=== PATIENT | male | born 1945 | race Caucasian/White ===

== ENCOUNTER 2017-03-31 15:40 | Emergency (ER) | payer MEDICARE, OTHER ==
[~2017-03-31] VITALS: Ht 177.8 cm; Wt 102.1 kg
[~2017-03-31 15:40] MED LIST: ALLOPURINOL100 MG PO; ASPIRIN 81MG TA81 MG PO; CHEWABLE ASPIRI81 MG PO; FLEXERIL10 M1 PO; HYDROCHLOROTHIA1 TA2 PO; HYDROCODONE1 TABLET PO; LIPITOR80 MG PO; LISINOPRIL/HCTZ1 TA3 PO; LOPRESSOR 50 MG50 MG PO; METOPROLOL TAR100 MG PO; MULTI VITAMINS1 TA1 PO; NAPROSYN 500MG500 MG PO; OMEPRAZOLE20 MG PO; PERCOCET 5/3251 EACH PO; PREDNISONE 20MG20 MG PO; TAMSULOSIN HCL0.4 MG PO; WELCHOL625 MG PO
--- NOTE | 2017-03-31 15:47 | Emergency Room Report ---
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 Clinical Suspician of Infection? Mental Status: Sepsis Risk: Have you (or family members/close friends) recently traveled outside the [place]? If Yes, where/when: Have you had exposure to infectious disease within the past month? TB? Other? Specify: Source patient, RN notes reviewed, family Exam Limitations no limitations Comment Pt just left the hospital yesterday after being treated for a Staph UTI and staph in the bloodstream and just got his PICC line removed yesterday. Did well yesterday when he got home but this morning got really SOA going to the Bathroom and has noticed that he is retaining fluid. 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 He is not on a diuretic at home and no oxygen, inhalers or nebs and he does not smoke. Cardiac Chest Pain Chest pain indicative of cardiac Yes ALLERGIES Coded Allergies: No Known Allergies (03/20/17) Home Medications Reported Medications Metoprolol Tartrate (Lopressor) 75 MG PO BID #90 TAB Atorvastatin Calcium (Atorvastatin) 80 MG PO QHS Allopurinol 100 MG PO DAILY ASPIRIN (Aspirin) 81 MG PO DAILY Omeprazole (Omeprazole 20MG) 20 MG PO DAILY #30 TAMSULOSIN HCL (Tamsulosin HCl) 0.4 MG PO DAILY #30 History Medical History General CAD? Yes Angina: Yes ID: Yes Hypertension? Yes Hyperlipidemia? Yes CHF? No DVT? No PE? No COPD? No Asthma? No Anemia? No GERD? Yes Gastric ulcers? No GI Bleed? No Hernia? No Thyroid Problems? No Hypothyroidism? No CVA? No Seizures? No Diabetes? No Renal Insuffiency? No End Stage Renal Disease? No UTI? No Stones? No BPH? Yes GB Disease: No Nephritic Syndrome? No Asplenia? No Hepatitis? No Sickle Cell Disease? No Arthritis? Yes Migraines? No Cataracts? No Glaucoma? No MRSA? No HIV? No TB? No Anxiety? No Depression? Yes Cancer? No More? No Immunization Hx DT/Tetanus 1-4 Years Ago Flu 2015-16FSN Pneumonia Received In Past Surgical Hx Previous Surgery?Y APPENDECTOMY Tonsils KNEE SX 2014 CABG X 3 Family History Family Hx Diabetes No CAD Yes Hypertension No Hyperlipidemia No Cancer Yes TB No Social History Smoking Hx Packs/day < 1 Pack Alcohol Alcohol: No Review of Systems All Other Systems Reviewed and Negative Constitutional see HPI Respiratory see HPI Psychiatric/Neurological see HPI Comment pedal and pretibial edema Physical Exam Vital Signs Vital Signs Date Time Temp Pulse Resp B/P Pulse O2 O2 Flow FiO2 Ox Delivery Rate 03/31 1723 98.0 90 24 132/79 90 2 03/31 1543 98.1 90 24 186/110 88 General Appearance no apparent distress, obese Respiratory Status Yes: respiratory distress (but is mildly SOA). Lung Sounds bilateral: rales. 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 No Results/Orders Laboratory Tests 03/31/17 1659: ABG pH 7.40, ABG pCO2 (Temp Corrct 31.3 L, ABG pO2 (Temp Correct 83.1, ABG HCO3 19.1 L, ABG Total CO2 20.0 L, ABG O2 Sat (Calculated) 95.1, ABG Base Excess - 5.7 L, William Test Y, Blood Gas Comments R/R 03/31/17 1633: Urine Color YELLOW, Urine Appearance CLEAR, Urine pH 5.5, Ur Specific [place] 1.020, Urine Protein 2+ H, Urine Ketones NEGATIVE, Urine Blood 3+ H, Urine Nitrate NEGATIVE, Urine Bilirubin NEGATIVE, Urine Urobilinogen 0.2, Ur Leukocyte Esterase TRACE H, Urine RBC 10-20, Urine WBC 20-50, Ur Squamous Epith Cells 5- 10, Urine Bacteria 3+, Urine Glucose NEGATIVE 03/31/17 1553: PSA Screen 15.0 H 03/31/17 1553: Lactic Acid 1.1 03/31/17 1553: Creatine Kinase 160, CK-MB (CK-2) Rel Index 2.4, CK and CKMB Interp 3.9 H, Troponin I 0.10 H, B-Natriuretic Peptide 3470 H 03/31/17 1553: Sodium 138, Potassium 4.0, Chloride 102, Carbon Dioxide 19 L, BUN 110 *H, Creatinine 6.1 H, Estimated Creat Clear 16 L, Estimated GFR (MDRD) 9, Glucose 141 H, Calcium 8.5, Total Bilirubin 0.5, AST 45 H, ALT 47, Alkaline Phosphatase 119 H, Total Protein 7.4, Albumin 2.3 L, Globulin 5.1 H, Albumin/ Globulin Ratio 0.5 L, PT 11.9 H, INR 1.11 H, APTT 24.9, WBC 11.7 H, RBC 3.64 L, Hgb 10.3 L, Hct 32.2 L, MCV 88.6, RDW 14.0, Plt Count 331, MPV 9.2, Gran % 79.7, Gran # 9.3 H, Lymphocytes % 12.6, Monocytes % 6.0, Eosinophils % 1.2, Basophils % 0.4, Lymphocytes # 1.5, Monocytes # 0.7, Eosinophils # 0.1, Basophils # 0.1, PUBS MCHC 32.1, MCH 28.4 Current Medication Orders Sig/Shira Start time Last Medication Dose Route Stop Time Status Admin Furosemide 40 MG ONCE ONE 03/31 1600 DC 03/31 IV 03/31 1601 1601 Sodium Chloride 10 ML PRN PRN 03/31 1600 AC IV 04/01 1558 Orders Procedure Date/time Status DIET-NOTHING BY MOUTH 03/31 D Active URINARY CATHETER INSERT 03/31 1723 Active ARTERIAL BLOOD GAS REQUEST 03/31 1644 Active PROSTATE-SPECIFIC AG SCREEN 03/[address] ABD/PELVIS REQ 03/31 1638 Complete CULTURE, URINE 03/31 1633 Active URINALYSIS/COMPLETE 03/31 1600 Complete LACTIC ACID 03/31 1600 Complete ELECTROCARDIOGRAM REQUEST 03/31 1559 Active CHEST-PORTABLE 03/31 155 Active IV SALINE LOCK 03/31 1559 Active CULTURE, BLOOD 03/31 155 Active PROTIME/PARTIAL PROTIME 03/31 155 Complete CBC WITH AUTO DIFF 03/31 155 Complete CARDIAC ENZYMES 03/31 155 Complete CHEM 12 PROFILE 03/31 155 Complete BRAIN NATRIURETIC PEPTIDE 03/31 155 Complete 12 LEAD EKG-ABRIL (INITIAL) 03/31 UNK Active CM/EKG CM/EKG EKG Accelerated Junctional rhythm with prolonged QT interval Departure Departure Time of Disposition 1757 Disposition DC/XFER from ER to [facility] Clinical Impression Primary Impression: Acute renal failure Qualifiers: Acute renal failure type: unspecified Qualified Code: N17.9 - Acute kidney failure, unspecified Secondary Impressions: Anasarca associated with disorder of kidney, Bilateral pleural effusion Condition STABLE Referrals Abril MARKS,Gabe (Family) Additional Instructions I spoke with Dr. Tabor who is covering for Dr. Jaime and he requests that we transfer pt. to as he will probably need dialysis to dry to remove his fluid and try to stabilize his renal function. I spoke with the bed coordinator at and they have accepted the pt in the name of Dr. Orellana Discharge Counseling Counseled pt/family regarding diagnosis, test results, follow up needs ED Critical Care Critical Care No If Critical Care minutes are documented, the time involved in the performance of seperately reportable procedures was not counted toward critical care time documented. I directly delivered medical care to this critically ill and/or injured patient. Timely evaluation and treatment was necessary to address the significant organ system(s) dysfunction present in this patient. at 1807
--- OUTSIDE RECORDS SUMMARY | 2017-03-31 15:58 | External Medical Summary Rpt ---
Demographics Preferred Language Yi Marital Status Unknown Episcopalian Affiliation Unknown Race Unknown Ethnic Group Unknown Author Author ADENIKE Address Unknown Phone Immunization No patient found.
--- OUTSIDE RECORDS SUMMARY | 2017-03-31 15:58 | External Medical Summary Rpt ---
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, LUMBAR REGION N28.9 DISORDER OF KIDNEY AND URETER, UNSPECIFIED Results Labs Lab Lab Date Result Refere Interp Status Commen Order Detail nces retati t Range on Cell count & Differential panel in Body fluid (03-26-2017 12:30) BODY COMMENT complet FLUID 017 ed DIFF 12:30 COMMEN Specime SYNOVIA complet n 017 L ed source 12:30 [Identi fier] of Body fluid Crystals [type] in Body fluid by Light microscopy (03-26-2017 12:30) Crystal Comment None complet s 017 seen ed [type] 12:30 in Body fluid by Light microsc opy Differential panel, method unspecified - (03-22-2017 06:05) LYMPH 03-22- 11 % 10% - Normal complet 017 50% ed 06:05 Platele NORMAL complet ts 017 ed [Presen 06:05 ce] in Blood by Light microsc opy Differential panel, method unspecified - (03-20-2017 06:05) LYMPH 03-20- 8 % 10% - Low complet 017 50% ed 06:05 Platele 03-20-2 NORMAL complet ts 017 ed [Presen 06:05 ce] in Blood by Light microsc opy Urinalysis dipstick W Reflex Microscopic panel in Urine (03-19-2017 00:24) Amorpho TRACE NONE complet us 017 ed sedimen 00:24 t [Presen ce] in Urine sedimen t by Light microsc opy Coarse 3-5 NONE complet Granula 017 ed r Casts 00:24 [Presen ce] in Urine sedimen t by Light microsc opy Hyaline 03-19- 3-5 NONE complet casts 017 ed [Presen 00:24 ce] in Urine sedimen t by Light microsc opy Mucus 2+ NONE complet [Presen 017 ed ce] in 00:24 Urine sedimen t by Light microsc opy Erythro 5-10 0 complet cytes 017 ed [Presen 00:24 ce] in Urine sedimen t by Light microsc opy Leukocy 10-20 O complet sophia 017 wbc/hpf ed [#/volu 00:24 me] in Urine Urinalysis dipstick W Reflex Microscopic panel in Urine (03-19-2017 00:24) Appeara CLEAR CLEAR complet nce of 017 ed Urine 00:24 Bilirub NEGATIV NEG complet in 017 E ed [Presen 00:24 ce] in Urine by Test strip Erythro 1+ NEG Abnorma complet cytes 017 l ed [Presen 00:24 ce] in Urine Color TROY YELLOW complet of 017 ed Urine 00:24 Ketones NEGATIV NEG complet 017 E ed [Presen 00:24 ce] in Urine by Automat ed test strip Mucus NEGATIV NEG complet [Presen 017 E ed ce] in 00:24 Urine sedimen t by Light microsc opy Nitrite NEGATIV NEG complet 017 E ed [Presen 00:24 ce] in Urine by Test strip Urobili 1.0 NEG complet nogen 017 ed [Presen 00:24 ce] in Urine by Test strip Differential panel, method unspecified - (03-19-2017 00:11) LYMPH 7 % 10% - Low complet 017 50% ed 00:11 Platele NORMAL complet ts 017 ed [Presen 00:11 ce] in Blood by Light microsc opy Erythro NORMAL complet cyte 017 ed morphol 00:11 ogy finding [Identi fier] in Blood Rouleau SL. complet x 017 ed [Presen 00:11 ce] in Blood by Light microsc opy Urinalysis dipstick W Reflex Microscopic panel in Urine (03-15-2017 20:30) Bacteri 03-15-2 1+ O complet a 017 ed [Presen 20:30 ce] in Urine sedimen t by Light microsc opy Coarse 03-15-2 OCC NONE complet Granula 017 ed r Casts 20:30 [Presen ce] in Urine sedimen t by Light microsc opy Mucus --2 OCC NONE complet [Presen 017 ed ce] in 20:30 Urine sedimen t by Light microsc opy Erythro 03-15-2 NONE 0 complet cytes 017 ed [Presen 20:30 ce] in Urine sedimen t by Light microsc opy Epithel 03-15-2 10-20 OCC complet ial 017 ed cells.s 20:30 quamous [Presen ce] in Urine sedimen t by Microsc opy high power field Leukocy 03-15- 5-10 O complet sophia 017 wbc/hpf ed [#/volu 20:30 me] in Urine Urinalysis dipstick W Reflex Microscopic panel in Urine (03-15-2017 20:30) Appeara CLEAR CLEAR complet nce of 017 ed Urine 20:30 Bilirub 1+ NEG Abnorma complet in 017 l ed [Presen 20:30 ce] in Urine by Test strip Erythro 2 NEGATIV NEG complet cytes 017 E ed [Presen 20:30 ce] in Urine Color 03-15-2 YELLOW YELLOW complet of 017 ed Urine 20:30 Ketones NEGATIV NEG complet 017 E ed [Presen 20:30 ce] in Urine by Automat ed test strip Mucus 03-15-2 TRACE NEG Abnorma complet [Presen 017 l ed ce] in 20:30 Urine sedimen t by Light microsc opy Nitrite 03-15-2 NEGATIV NEG complet 017 E ed [Presen 20:30 ce] in Urine by Test strip Urobili 03-15-2 1.0 NEG complet nogen 017 ed [Presen 20:30 ce] in Urine by Test strip
--- OUTSIDE RECORDS SUMMARY | 2017-03-31 15:58 | External Medical Summary Rpt ---
Author Author , TREVA TILLEY Address Unknown Phone [email or web address] Purpose Continuity of Care Document - 03-15-2017 [...]
--- OUTSIDE RECORDS SUMMARY | 2017-03-31 15:58 | External Medical Summary Rpt ---
Demographics Preferred Language Polish Marital Status Unknown Spiritism Affiliation Unknown Race Unknown Ethnic Group Unknown Author Author ADENIKE Address Unknown Phone Immunization No patient found.
--- OUTSIDE RECORDS SUMMARY | 2017-03-31 16:01 | External Medical Summary Rpt ---
Author Author [employer], [employer] Organization [employer] Address Unknown Phone Unavailable Results CBC W Auto Differential panel in Blood Observa Value Referen Units Interpr Notes Date tion ce etation Range Basophils 0 - 0.2 K/MM3 Normal No Mar 29 informati 2016 3:58 [#/volume on in PM ] in source Blood by data Automated count Basophils 0.1 - 2.0 % Normal No Mar 29 / informati 2017 3:58 leukocyte on in PM s in source Blood by data Automated count Eosinophi 0.0 - 0.4 K/mm3 Normal No Mar 29 ls informati 2016 3:58 [#/volume on in PM ] in source Blood by data Automated count Eosinophi 0.1 - % Normal No Mar 29 ls/100 12.0 informati 2017 3:58 leukocyte on in PM s in source Blood by data Automated count Granulocy 1.3 - 8.0 K/mm3 High No Mar 29 sophia informati 2017 3:58 [#/volume on in PM ] in source Blood by data Automated count Granulocy 37.0 - % Normal No Mar 29 sophia/100 80.0 informati 2017 3:58 leukocyte on in PM s in source Blood by data Automated count Hematocri 42.0 - % Low No Mar 29 t [Volume 52.0 informati 2016 3:58 on in PM Fraction] source of Blood data Hemoglobi 14.1 - g/dL Low No Mar 29 n 18.0 informati 2017 3:58 [Mass/vol on in PM ume] in source Blood data Lymphocyt 0.7 - 4.5 K/mm3 Normal No Mar 29 es informati 2016 3:58 [#/volume on in PM ] in source Unspecifi data ed specimen by Automated count Lymphocyt 10 - 50 % Normal No Mar 29 es informati 2016 3:58 [#/volume on in PM ] in source Unspecifi data ed specimen by Automated count Erythrocy 27 - 31.2 pg Normal No Mar 29 te mean informati 2016 3:58 corpuscul on in PM ar source hemoglobi data n [Entitic mass] Erythrocy 31.8 - g/dl Normal No Mar 29 te mean 35.4 informati 2016 3:58 corpuscul on in PM ar source hemoglobi data n concentra tion [Mass/vol ume] by Automated count Erythrocy 82.2 - fl Normal No Mar 29 te mean 97.8 informati 2016 3:58 corpuscul on in PM ar volume source [Entitic data volume] by Automated count Monocytes 0.1 - 1.0 K/mm3 Normal No Mar 29 inform2016 3:58 [#/volume on in PM ] in source Blood by data Automated count Monocytes 1.7 - 9.3 % Normal No Mar 29 /100 informati 2016 3:58 leukocyte on in PM s in source Blood by data Automated count Platelet 7.4 - fl Normal No Mar 29 mean 10.4 informati 2016 3:58 volume on in PM [Entitic source volume] data in Blood by Automated count Platelets 142 - 424 K/mm3 Normal No Mar 292016 3:58 [#/volume on in PM ] in source Blood data Erythrocy 4.6 - 6.2 M/mm3 Low No Mar 29 sophia informati 2017 3:58 [#/volume on in PM ] in source Amniotic data fluid Erythrocy 11.5 - % Normal No Mar 29 te 17.5 informati 2016 3:58 distribut on in PM ion width source [Entitic data volume] by Automated count Leukocyte 4.8 - K/MM3 Normal No Mar 29 s 10.8 informati 2016 3:58 [#/volume on in PM ] in source Blood data Erythrocyte sedimentation rate by Westergren method Observa Value Referen Units Interpr Notes Date tion ce etation Range Erythrocy 0 - 20 mm/hr High No Mar 29 te informati 2017 3:58 sedimenta on in PM tion rate source by data Westergre n method CRP Observa Value Referen Units Interpr Notes Date tion ce etation Range CRP 0.0 - 0.9 MG/DL High No Mar 29 informati 2016 3:58 on in PM source data Cell count & Differential panel in Body fluid Observa Value Referen Units Interpr Notes Date tion ce etation Range FLUID FROM LEFT KNEE Please use Abx removal device- Pt has Staph sepsis. Please do aerobic and anaerobic cultures x 2 on the fluid and grow for at least 5 days BODY COMMENT No No No SMALL Mar 26 FLUID informa informa informa CLOT 2017 DIFF tion in tion in tion in FOUND 12:30 COMMEN source source source IN PM data data data SAMPLE. REVIEW RESULTS WITH CAUTION . Monocytes No % No No Mar 26 informati informati informati 2017 [#/volume on in on in on in 12:30 PM ] in Body source source source fluid data data data Neutrophi No % No No Mar 26 ls.segmen informati informati informati 2017 ko/100 on in on in on in 12:30 PM leukocyte source source source s in Body data data data fluid by Manual count Erythrocy No /mm3 No DENOTED Mar 26 sophia informati informati RARE 2017 [#/volume on in on in 12:30 PM ] in Body source source fluid data data Specime SYNOVIA No No No No Mar 26 n L informa informa informa informa 2017 source tion in tion in tion in tion in 12:30 [Identi source source source source PM fier] data data data data of Body fluid Leukocyte No MM No No Mar 26 s informati informati informati 2017 [#/volume on in on in on in 12:30 PM ] in Body source source source fluid data data data Crystals [type] in Body fluid by Light microscopy Observa Value Referen Units Interpr Notes Date ti ce etation Range FLUID FROM LEFT KNEE Please use Abx removal device- Pt has Staph sepsis. Please do aerobic and anaerobic cultures x 2 on the fluid and grow for at least 5 days Crystal Comment None No No No Mar 26 s seen informa informa crystal 2017 [type] tion in tion in s seen 12:30 in Body source source under PM fluid data data normal by or Light polariz microsc ed opy light.P landon aguilar at: - [facility] [address], [place], [place] [id number] Directo r: Mario camacho PhD, Phone: [phone] CRP Observa Value Referen Units Interpr Notes Date ti ce etation Range CRP 0.0 - 0.9 MG/DL High No Mar 26 informati 2017 8:25 on in AM source data Comprehensive metabolic 2000 panel in Serum or Plasma Observa Value Referen Units Interpr Notes Date ti ce etation Range Albumin/G 1.1 - 1.8 No Low No Mar 26 lobulin informati informati 2016 8:25 [Mass on in on in AM ratio] in source source Serum or data data Plasma Albumin 3.4 - 5.0 gm/dL Low No Mar 26 [Mass/vol informati 2016 8:25 ume] in on in AM Serum or source Plasma data Alkaline 46 - 116 U/L High No Mar 26 phosphata informati 2016 8:25 se on in AM [Enzymati source c data activity/ volume] in Serum or Plasma Bilirubin 0.2 - 1.0 mg/dL High No Mar 26 .total informati 2016 8:25 [Mass/vol on in AM ume] in source Serum or data Plasma Urea 7 - 18 mg/dL High No Mar 26 nitrogen informati 2016 8:25 [Mass/vol on in AM ume] in source Serum or data Plasma Calcium 8.5 - mg/dL Low No Mar 26 [Mass/vol 10.1 informati 2016 8:25 ume] in on in AM Serum or source Plasma data Chloride 98 - 107 mmoL/L Normal No Mar 26 [Moles/vo informati 2016 8:25 lume] in on in AM Serum or source Plasma data Carbon 21.0 - mmoL/L Normal No Mar 26 dioxide, 32.0 informati 2017 8:25 total on in AM [Moles/vo source lume] in data Serum or Plasma Creatinin 0.70 - mg/dL High No Mar 26 e 1.30 informati 2016 8:25 [Mass/vol on in AM ume] in source Serum or data Plasma Creatinin 50 - 200 ML/MIN Low No Mar 26 e renal informati 2017 8:25 clearance on in AM source predicted data by Cockcroft -Gault formula Estimated >60 ML/MIN No REFERENCE Mar 26 informati RANGE: 2017 8:25 glomerula on in >60 AM r source ML/MIN/1. filtratio data 73 SQUARE n rate METERSIf (GF this patient is -A merican, then multiply theresult by 1.210. Globulin 1.3 - 3.2 gm/dL High No Mar 26 [Mass/vol informati 2016 8:25 ume] in on in AM Serum source data Glucose 74 - 106 mg/dL High No Mar 26 [Mass/vol informati 2016 8:25 ume] in on in AM Serum or source Plasma data Potassium 3.5 - 5.1 mmoL/L Normal Mar 26 inform2016 8:25 [Moles/vo on in AM lume] in source Serum or data Plasma Sodium 136 - 145 mmoL/L Normal Mar 26 [Moles/vo 2016 8:25 lume] in on in AM Serum or source Plasma data Aspartate 15 - 37 U/L High Mar 26 inform2016 8:25 aminotran on in AM sferase source [Enzymati data c activity/ volume] in Serum or Plasma Alanine 12 - 78 U/L Normal Mar 26 aminotran 2016 8:25 sferase on in AM [Enzymati source c data activity/ volume] in Serum or Plasma Protein 6.4 - 8.2 gm/dL Low Mar 26 [Mass/vol informati 2016 8:25 ume] in on in AM Serum or source Plasma data CBC W Auto Differential panel in Blood Observa Value Referen Units Interpr Notes Date tion ce etation Range Basophils 0 - 0.2 K/MM3 Normal Mar 262016 8:25 [#/volume on in AM ] in source Blood by data Automated count Basophils 0.1 - 2.0 % Normal No Mar 26 informati 2016 8:25 leukocyte on in AM s in source Blood by data Automated count Eosinophi 0.0 - 0.4 K/mm3 Normal Mar 26 ls ati 2016 8:25 [#/volume on in AM ] in source Blood by data Automated count Eosinophi 0.1 - % Normal Mar 26 ls/100 12.0 informati 2016 8:25 leukocyte on in AM s in source Blood by data Automated count Granulocy 1.3 - 8.0 K/mm3 High Mar 26 sophia ati 2016 8:25 [#/volume on in AM ] in source Blood by data Automated count Granulocy 37.0 - % High Mar 26 sophia/100 80.0 informati 2016 8:25 leukocyte on in AM s in source Blood by data Automated count Hematocri 42.0 - % Low Mar 26 t [Volume 52.0 ati 2016 8:25 on in AM Fraction] source of Blood data Hemoglobi 14.1 - g/dL Low Mar 26 n 18.0 ati 2016 8:25 [Mass/vol on in AM ume] in source Blood data Lymphocyt 0.7 - 4.5 K/mm3 Normal No Mar 26 es informati 2016 8:25 [#/volume on in AM ] in source Unspecifi data ed specimen by Automated count Lymphocyt 10 - 50 % Low No Mar 26 es informati 2017 8:25 [#/volume on in AM ] in source Unspecifi data ed specimen by Automated count Erythrocy 27 - 31.2 pg Normal No Mar 26 te mean informati 2017 8:25 corpuscul on in AM ar source hemoglobi data n [Entitic mass] Erythrocy 31.8 - g/dl Normal No Mar 26 te mean 35.4 informati 2016 8:25 corpuscul on in AM ar source hemoglobi data n concentra tion [Mass/vol ume] by Automated count Erythrocy 82.2 - fl Normal No Mar 26 te mean 97.8 informati 2016 8:25 corpuscul on in AM ar volume source [Entitic data volume] by Automated count Monocytes 0.1 - 1.0 K/mm3 Normal No Mar 26 informati 2016 8:25 [#/volume on in AM ] in source Blood by data Automated count Monocytes 1.7 - 9.3 % Normal No Mar 26 /100 informati 2017 8:25 leukocyte on in AM s in source Blood by data Automated count Platelet 7.4 - fl Normal No Mar 26 mean 10.4 informati 2016 8:25 volume on in AM [Entitic source volume] data in Blood by Automated count Platelets 142 - 424 K/mm3 Normal No Mar 26 informati 2016 8:25 [#/volume on in AM ] in source Blood data Erythrocy 4.6 - 6.2 M/mm3 Low No Mar 26 sophia informati 2017 8:25 [#/volume on in AM ] in source Amniotic data fluid Erythrocy 11.5 - % Normal No Mar 26 te 17.5 informati 2016 8:25 distribut on in AM ion width source [Entitic data volume] by Automated count Leukocyte 4.8 - K/MM3 High No Mar 26 s 10.8 informati 2016 8:25 [#/volume on in AM ] in source Blood data CBC W Auto Differential panel in Blood Observa Value Referen Units Interpr Notes Date tion ce etation Range Basophils 0 - 0.2 K/MM3 Normal No Mar 22 informati 2017 6:05 [#/volume on in AM ] in source Blood by data Automated count Basophils 0.1 - 2.0 % Normal No Feb 29 /100 informati 2017 6:05 leukocyte on in AM s in source Blood by data Automated count Eosinophi 0.0 - 0.4 K/mm3 Normal No Mar 22 ls informati 2017 6:05 [#/volume on in AM ] in source Blood by data Automated count Eosinophi 0.1 - % Normal No Mar 22 ls/100 12.0 informati 2017 6:05 leukocyte on in AM s in source Blood by data Automated count Granulocy 1.3 - 8.0 K/mm3 High No Mar 22 sophia informati 2017 6:05 [#/volume on in AM ] in source Blood by data Automated count Granulocy 37.0 - % Normal No Mar 22 sophia/100 80.0 informati 2017 6:05 leukocyte on in AM s in source Blood by data Automated count Hematocri 42.0 - % Low No Mar 22 t [Volume 52.0 informati 2017 6:05 on in AM Fraction] source of Blood data Hemoglobi 14.1 - g/dL Low No Mar 22 n 18.0 informati 2017 6:05 [Mass/vol on in AM ume] in source Blood data Lymphocyt 0.7 - 4.5 K/mm3 Normal No Mar 22 es informati 2017 6:05 [#/volume on in AM ] in source Unspecifi data ed specimen by Automated count Lymphocyt 10 - 50 % Normal No Mar 22 es informati 2016 6:05 [#/volume on in AM ] in source Unspecifi data ed specimen by Automated count Erythrocy 27 - 31.2 pg Normal No Mar 22 te mean informati 2017 6:05 corpuscul on in AM ar source hemoglobi data n [Entitic mass] Erythrocy 31.8 - g/dl Normal No Mar 22 te mean 35.4 informati 2017 6:05 corpuscul on in AM ar source hemoglobi data n concentra tion [Mass/vol ume] by Automated count Erythrocy 82.2 - fl Normal No Mar 22 te mean 97.8 informati 2017 6:05 corpuscul on in AM ar volume source [Entitic data volume] by Automated count Monocytes 0.1 - 1.0 K/mm3 High No Mar 22 informati 2017 6:05 [#/volume on in AM ] in source Blood by data Automated count Monocytes 1.7 - 9.3 % Normal No Mar 22 /100 informati 2017 6:05 leukocyte on in AM s in source Blood by data Automated count Platelet 7.4 - fl Normal No Mar 22 mean 10.4 informati 2017 6:05 volume on in AM [Entitic source volume] data in Blood by Automated count Platelets 142 - 424 K/mm3 No No Mar 22 informati informati 2017 6:05 [#/volume on in on in AM ] in source source Blood data data Erythrocy 4.6 - 6.2 M/mm3 Low No Mar 22 sophia informati 2017 6:05 [#/volume on in AM ] in source Amniotic data fluid Erythrocy 11.5 - % Normal No Mar 22 te 17.5 informati 2017 6:05 distribut on in AM ion width source [Entitic data volume] by Automated count Leukocyte 4.8 - K/MM3 High No Mar 22 s 10.8 informati 2017 6:05 [#/volume on in AM ] in source Blood data Differential panel, method unspecified - Observa Value Referen Units Interpr Notes Date tion ce etation Range Eosinophi 0 - 3 % Normal No Mar 22 ls/100 informati 2017 6:05 leukocyte on in AM s in source Blood by data Manual count LYMPH 11 10 - 50 % Normal No Mar 22 inform2016 tion in 6:05 AM source data Monocytes 2 - 9 % High No Mar 22 / informati 2017 6:05 leukocyte on in AM s in source Blood by data Automated count Platele NORMAL No No No No Mar 22 ts informa informa informa informa 2016 [Presen tion in tion in tion in tion in 6:05 AM ce] in source source source source Blood data data data data by Light microsc opy Neutrophi 42 - 76 % High No Mar 22 ls informati 2016 6:05 [#/volume on in AM ] in source Blood by data Automated count Cells No #CELLS No No Mar 22 Counted informati informati informati 2016 6:05 Total [#] on in on in on in AM in Blood source source source data data data CBC W Auto Differential panel in Blood Observa Value Referen Units Interpr Notes Date tion ce etation Range Basophils 0 - 0.2 K/MM3 Normal No Mar 22 informati 2016 6:05 [#/volume on in AM ] in source Blood by data Automated count Basophils 0.1 - 2.0 % Normal No Feb 29 /100 informati 2017 6:05 leukocyte on in AM s in source Blood by data Automated count Eosinophi 0.0 - 0.4 K/mm3 Normal No Mar 22 ls informati 2017 6:05 [#/volume on in AM ] in source Blood by data Automated count Eosinophi 0.1 - % Normal No Mar 22 ls/100 12.0 informati 2017 6:05 leukocyte on in AM s in source Blood by data Automated count Granulocy 1.3 - 8.0 K/mm3 High No Mar 22 sophia informati 2017 6:05 [#/volume on in AM ] in source Blood by data Automated count Granulocy 37.0 - % Normal No Mar 22 sophia/100 80.0 informati 2017 6:05 leukocyte on in AM s in source Blood by data Automated count Hematocri 42.0 - % Low No Mar 22 t [Volume 52.0 informati 2017 6:05 on in AM Fraction] source of Blood data Hemoglobi 14.1 - g/dL Low No Mar 22 n 18.0 informati 2017 6:05 [Mass/vol on in AM ume] in source Blood data Lymphocyt 0.7 - 4.5 K/mm3 Normal No Mar 22 es informati 2017 6:05 [#/volume on in AM ] in source Unspecifi data ed specimen by Automated count Lymphocyt 10 - 50 % Normal No Mar 22 es informati 2016 6:05 [#/volume on in AM ] in source Unspecifi data ed specimen by Automated count Erythrocy 27 - 31.2 pg Normal No Mar 22 te mean informati 2017 6:05 corpuscul on in AM ar source hemoglobi data n [Entitic mass] Erythrocy 31.8 - g/dl Normal No Mar 22 te mean 35.4 informati 2017 6:05 corpuscul on in AM ar source hemoglobi data n concentra tion [Mass/vol ume] by Automated count Erythrocy 82.2 - fl Normal No Mar 22 te mean 97.8 informati 2017 6:05 corpuscul on in AM ar volume source [Entitic data volume] by Automated count Monocytes 0.1 - 1.0 K/mm3 High No Mar 22 informati 2017 6:05 [#/volume on in AM ] in source Blood by data Automated count Monocytes 1.7 - 9.3 % Normal No Mar 22 /100 informati 2017 6:05 leukocyte on in AM s in source Blood by data Automated count Platelet 7.4 - fl Normal No Mar 22 mean 10.4 informati 2017 6:05 volume on in AM [Entitic source volume] data in Blood by Automated count Platelets 142 - 424 K/mm3 No No Mar 22 informati informati 2017 6:05 [#/volume on in on in AM ] in source source Blood data data Erythrocy 4.6 - 6.2 M/mm3 Low No Mar 22 sophia informati 2017 6:05 [#/volume on in AM ] in source Amniotic data fluid Erythrocy 11.5 - % Normal No Mar 22 te 17.5 informati 2017 6:05 distribut on in AM ion width source [Entitic data volume] by Automated count Leukocyte 4.8 - K/MM3 High No Mar 22 s 10.8 informati 2017 6:05 [#/volume on in AM ] in source Blood data Differential panel, method unspecified - Observa Value Referen Units Interpr Notes Date tion ce etation Range Eosinophi 0 - 3 % Normal No Mar 22 ls/100 informati 2017 6:05 leukocyte on in AM s in source Blood by data Manual count LYMPH 11 10 - 50 % Normal No Mar 22 inform2016 tion in 6:05 AM source data Monocytes 2 - 9 % High No Mar 22 informati 2017 6:05 leukocyte on in AM s in source Blood by data Automated count Platele NORMAL No No No No Mar 22 ts informa informa informa informa 2016 [Presen tion in tion in tion in tion in 6:05 AM ce] in source source source source Blood data data data data by Light microsc opy Neutrophi 42 - 76 % High No Mar 22 ls informati 2016 6:05 [#/volume on in AM ] in source Blood by data Automated count Cells No #CELLS No No Mar 22 Counted informati informati informati 2016 6:05 Total [#] on in on in on in AM in Blood source source source data data data CBC W Auto Differential panel in Blood Observa Value Referen Units Interpr Notes Date tion ce etation Range Basophils 0 - 0.2 K/MM3 Normal No Mar 22 informati 2016 6:05 [#/volume on in AM ] in source Blood by data Automated count Basophils 0.1 - 2.0 % Normal No Feb 29 /100 informati 2017 6:05 leukocyte on in AM s in source Blood by data Automated count Eosinophi 0.0 - 0.4 K/mm3 Normal No Mar 22 ls informati 2016 6:05 [#/volume on in AM ] in source Blood by data Automated count Eosinophi 0.1 - % Normal No Mar 22 ls/100 12.0 informati 2017 6:05 leukocyte on in AM s in source Blood by data Automated count Granulocy 1.3 - 8.0 K/mm3 High No Mar 22 sophia informati 2017 6:05 [#/volume on in AM ] in source Blood by data Automated count Granulocy 37.0 - % Normal No Mar 22 sophia/100 80.0 informati 2017 6:05 leukocyte on in AM s in source Blood by data Automated count Hematocri 42.0 - % Low No Mar 22 t [Volume 52.0 informati 2017 6:05 on in AM Fraction] source of Blood data Hemoglobi 14.1 - g/dL Low No Mar 22 n 18.0 informati 2017 6:05 [Mass/vol on in AM ume] in source Blood data Lymphocyt 0.7 - 4.5 K/mm3 Normal No Mar 22 es informati 2017 6:05 [#/volume on in AM ] in source Unspecifi data ed specimen by Automated count Lymphocyt 10 - 50 % Normal No Mar 22 es informati 2016 6:05 [#/volume on in AM ] in source Unspecifi data ed specimen by Automated count Erythrocy 27 - 31.2 pg Normal No Mar 22 te mean informati 2017 6:05 corpuscul on in AM ar source hemoglobi data n [Entitic mass] Erythrocy 31.8 - g/dl Normal No Mar 22 te mean 35.4 informati 2017 6:05 corpuscul on in AM ar source hemoglobi data n concentra tion [Mass/vol ume] by Automated count Erythrocy 82.2 - fl Normal No Mar 22 te mean 97.8 informati 2017 6:05 corpuscul on in AM ar volume source [Entitic data volume] by Automated count Monocytes 0.1 - 1.0 K/mm3 High No Mar 22 informati 2017 6:05 [#/volume on in AM ] in source Blood by data Automated count Monocytes 1.7 - 9.3 % Normal No Mar 22 /100 informati 2017 6:05 leukocyte on in AM s in source Blood by data Automated count Platelet 7.4 - fl Normal No Mar 22 mean 10.4 informati 2017 6:05 volume on in AM [Entitic source volume] data in Blood by Automated count Platelets 142 - 424 K/mm3 No No Mar 22 informati informati 2017 6:05 [#/volume on in on in AM ] in source source Blood data data Erythrocy 4.6 - 6.2 M/mm3 Low No Mar 22 sophia informati 2017 6:05 [#/volume on in AM ] in source Amniotic data fluid Erythrocy 11.5 - % Normal No Mar 22 te 17.5 informati 2017 6:05 distribut on in AM ion width source [Entitic data volume] by Automated count Leukocyte 4.8 - K/MM3 High No Mar 22 s 10.8 informati 2017 6:05 [#/volume on in AM ] in source Blood data Differential panel, method unspecified - Observa Value Referen Units Interpr Notes Date tion ce etation Range Eosinophi 0 - 3 % Normal No Mar 22 ls/100 informati 2017 6:05 leukocyte on in AM s in source Blood by data Manual count LYMPH 11 10 - 50 % Normal No Mar 22 inform 2017 tion in 6:05 AM source data Monocytes 2 - 9 % High No Mar 22 / informati 2017 6:05 leukocyte on in AM s in source Blood by data Automated count Platele NORMAL No No No No Mar 22 ts informa informa informa informa 2016 [Presen tion in tion in tion in tion in 6:05 AM ce] in source source source source Blood data data data data by Light microsc opy Neutrophi 42 - 76 % High No Mar 22 ls informati 2016 6:05 [#/volume on in AM ] in source Blood by data Automated count Cells No #CELLS No No Mar 22 Counted informati informati informati 2017 6:05 Total [#] on in on in on in AM in Blood source source source data data data Comprehensive metabolic 2000 panel in Serum or Plasma Observa Value Referen Units Interpr Notes Date tion ce etation Range Albumin/G 1.1 - 1.8 No Low No Mar 22 lobulin informati informati 2017 6:05 [Mass on in on in AM ratio] in source source Serum or data data Plasma Albumin 3.4 - 5.0 gm/dL Low No Mar 22 [Mass/vol informati 2016 6:05 ume] in on in AM Serum or source Plasma data Alkaline 46 - 116 U/L High No Mar 22 phosphata informati 2017 6:05 se on in AM [Enzymati source c data activity/ volume] in Serum or Plasma Bilirubin 0.2 - 1.0 mg/dL Normal No Mar 22 .total informati 2016 6:05 [Mass/vol on in AM ume] in source Serum or data Plasma Urea 7 - 18 mg/dL High No Mar 22 nitrogen informati 2017 6:05 [Mass/vol on in AM ume] in source Serum or data Plasma Calcium 8.5 - mg/dL Low No Mar 22 [Mass/vol 10.1 informati 2016 6:05 ume] in on in AM Serum or source Plasma data Chloride 98 - 107 mmoL/L Normal No Mar 22 [Moles/vo informati 2016 6:05 lume] in on in AM Serum or source Plasma data Carbon 21.0 - mmoL/L Normal No Mar 22 dioxide, 32.0 informati 2017 6:05 total on in AM [Moles/vo source lume] in data Serum or Plasma Creatinin 0.70 - mg/dL Normal No Mar 22 e 1.30 informati 2017 6:05 [Mass/vol on in AM ume] in source Serum or data Plasma Creatinin 50 - 200 ML/MIN Normal No Mar 22 e renal informati 2017 6:05 clearance on in AM source predicted data by Cockcroft -Gault formula Estimated >60 ML/MIN No REFERENCE Mar 22 informati RANGE: 2017 6:05 glomerula on in >60 AM r source ML/MIN/1. filtratio data 73 SQUARE n rate METERSIf (GF this patient is -A merican, then multiply theresult by 1.210. Globulin 1.3 - 3.2 gm/dL High No Mar 22 [Mass/vol informati 2016 6:05 ume] in on in AM Serum source data Glucose 74 - 106 mg/dL High No Mar 22 [Mass/vol informati 2016 6:05 ume] in on in AM Serum or source Plasma data Potassium 3.5 - 5.1 mmoL/L Low No Mar 22 informati 2017 6:05 [Moles/vo on in AM lume] in source Serum or data Plasma Sodium 136 - 145 mmoL/L Normal No Mar 22 [Moles/vo informati 2016 6:05 lume] in on in AM Serum or source Plasma data Aspartate 15 - 37 U/L High No Mar 22 informati 2017 6:05 aminotran on in AM sferase source [Enzymati data c activity/ volume] in Serum or Plasma Alanine 12 - 78 U/L No Mar 22 aminotran informati informati 2017 6:05 sferase on in on in AM [Enzymati source source c data data activity/ volume] in Serum or Plasma Protein 6.4 - 8.2 gm/dL Normal No Mar 22 [Mass/vol informati 2016 6:05 ume] in on in AM Serum or source Plasma data CBC W Auto Differential panel in Blood Observa Value Referen Units Interpr Notes Date tion ce etation Range Basophils 0 - 0.2 K/MM3 Normal No Mar 20 informati 2017 6:05 [#/volume on in AM ] in source Blood by data Automated count Basophils 0.1 - 2.0 % Normal No Mar 20 / informati 2017 6:05 leukocyte on in AM s in source Blood by data Automated count Eosinophi 0.0 - 0.4 K/mm3 Normal No Mar 20 ls informati 2016 6:05 [#/volume on in AM ] in source Blood by data Automated count Eosinophi 0.1 - % Normal No Mar 20 ls/100 12.0 informati 2017 6:05 leukocyte on in AM s in source Blood by data Automated count Granulocy 1.3 - 8.0 K/mm3 High No Mar 20 sophia informati 2017 6:05 [#/volume on in AM ] in source Blood by data Automated count Granulocy 37.0 - % High No Mar 20 sophia/100 80.0 informati 2017 6:05 leukocyte on in AM s in source Blood by data Automated count Hematocri 42.0 - % Low Mar 20 t [Volume 52.0 informati 2017 6:05 on in AM Fraction] source of Blood data Hemoglobi 14.1 - g/dL Low No Mar 20 n 18.0 informati 2016 6:05 [Mass/vol on in AM ume] in source Blood data Lymphocyt 0.7 - 4.5 K/mm3 Normal No Mar 20 es informati 2017 6:05 [#/volume on in AM ] in source Unspecifi data ed specimen by Automated count Lymphocyt 10 - 50 % Low No Mar 20 es informati 2017 6:05 [#/volume on in AM ] in source Unspecifi data ed specimen by Automated count Erythrocy 27 - 31.2 pg Normal No Mar 20 te mean informati 2017 6:05 corpuscul on in AM ar source hemoglobi data n [Entitic mass] Erythrocy 31.8 - g/dl Normal No Mar 20 te mean 35.4 informati 2017 6:05 corpuscul on in AM ar source hemoglobi data n concentra tion [Mass/vol ume] by Automated count Erythrocy 82.2 - fl Normal No Mar 20 te mean 97.8 informati 2017 6:05 corpuscul on in AM ar volume source [Entitic data volume] by Automated count Monocytes 0.1 - 1.0 K/mm3 High No Mar 20 informati 2017 6:05 [#/volume on in AM ] in source Blood by data Automated count Monocytes 1.7 - 9.3 % Normal No Mar 20 /100 informati 2017 6:05 leukocyte on in AM s in source Blood by data Automated count Platelet 7.4 - fl Normal No Mar 20 mean 10.4 informati 2017 6:05 volume on in AM [Entitic source volume] data in Blood by Automated count Platelets 142 - 424 K/mm3 Normal No Mar 20 informati 2017 6:05 [#/volume on in AM ] in source Blood data Erythrocy 4.6 - 6.2 M/mm3 Low No Mar 20 sophia informati 2017 6:05 [#/volume on in AM ] in source Amniotic data fluid Erythrocy 11.5 - % Normal No Mar 20 te 17.5 informati 2017 6:05 distribut on in AM ion width source [Entitic data volume] by Automated count Leukocyte 4.8 - K/MM3 High No Mar 20 s 10.8 informati 2017 6:05 [#/volume on in AM ] in source Blood data Differential panel, method unspecified - Observa Value Referen Units Interpr Notes Date tion ce etation Range Neutrophi 0 - 8 % Normal No Mar 20 ls.band informati 2017 6:05 form/100 on in AM leukocyte source s in data Blood by Automated count Eosinophi 0 - 3 % Normal No Mar 20 ls/100 informati 2017 6:05 leukocyte on in AM s in source Blood by data Manual count LYMPH 8 10 - 50 % Low No Mar 20 informa 2016 tion in 6:05 AM source data Monocytes 2 - 9 % High No Feb 27 /100 informati 2017 6:05 leukocyte on in AM s in source Blood by data Automated count Platele NORMAL No No No No Mar 20 ts informa informa informa informa 2016 [Presen tion in tion in tion in tion in 6:05 AM ce] in source source source source Blood data data data data by Light microsc opy Neutrophi 42 - 76 % Normal No Mar 20 ls informati 2017 6:05 [#/volume on in AM ] in source Blood by data Automated count Cells No #CELLS No No Mar 20 Counted informati informati informati 2017 6:05 Total [#] on in on in on in AM in Blood source source source data data data Comprehensive metabolic 2000 panel in Serum or Plasma Observa Value Referen Units Interpr Notes Date tion ce etation Range Albumin/G 1.1 - 1.8 No Low No Mar 20 lobulin informati informati 2017 6:05 [Mass on in on in AM ratio] in source source Serum or data data Plasma Albumin 3.4 - 5.0 gm/dL Low No Mar 20 [Mass/vol informati 2017 6:05 ume] in on in AM Serum or source Plasma data Alkaline 46 - 116 U/L Normal No Mar 20 phosphata informati 2017 6:05 se on in AM [Enzymati source c data activity/ volume] in Serum or Plasma Bilirubin 0.2 - 1.0 mg/dL High No Mar 20 .total informati 2017 6:05 [Mass/vol on in AM ume] in source Serum or data Plasma Urea 7 - 18 mg/dL High No Mar 20 nitrogen informati 2017 6:05 [Mass/vol on in AM ume] in source Serum or data Plasma Calcium 8.5 - mg/dL Low No Mar 20 [Mass/vol 10.1 informati 2017 6:05 ume] in on in AM Serum or source Plasma data Chloride 98 - 107 mmoL/L Normal No Mar 20 [Moles/vo informati 2017 6:05 lume] in on in AM Serum or source Plasma data Carbon 21.0 - mmoL/L Normal No Mar 20 dioxide, 32.0 informati 2017 6:05 total on in AM [Moles/vo source lume] in data Serum or Plasma Creatinin 0.70 - mg/dL Normal No Mar 20 e 1.30 informati 2016 6:05 [Mass/vol on in AM ume] in source Serum or data Plasma Creatinin 50 - 200 ML/MIN Normal No Mar 20 e renal informati 2016 6:05 clearance on in AM source predicted data by Cockcroft -Gault formula Estimated >60 ML/MIN No REFERENCE Mar 20 informati RANGE: 2017 6:05 glomerula on in >60 AM r source ML/MIN/1. filtratio data 73 SQUARE n rate METERSIf (GF this patient is -A merican, then multiply theresult by 1.210. Globulin 1.3 - 3.2 gm/dL High No Mar 20 [Mass/vol informati 2016 6:05 ume] in on in AM Serum source data Glucose 74 - 106 mg/dL High No Mar 20 [Mass/vol informati 2016 6:05 ume] in on in AM Serum or source Plasma data Potassium 3.5 - 5.1 mmoL/L Normal No Mar 20 inform2016 6:05 [Moles/vo on in AM lume] in source Serum or data Plasma Sodium 136 - 145 mmoL/L Normal No Mar 20 [Moles/vo informati 2016 6:05 lume] in on in AM Serum or source Plasma data Aspartate 15 - 37 U/L High No Mar 20 inform2016 6:05 aminotran on in AM sferase source [Enzymati data c activity/ volume] in Serum or Plasma Alanine 12 - 78 U/L No Mar 20 aminotran informati informati 2016 6:05 sferase on in on in AM [Enzymati source source c data data activity/ volume] in Serum or Plasma Protein 6.4 - 8.2 gm/dL Normal No Mar 20 [Mass/vol informati 2016 6:05 ume] in on in AM Serum or source Plasma data UPPER RESPIRATORY PANEL,PCR Observa Value Referen Units Interpr Notes Date tion ce etation Range Adenovi NOT NOT No No No Mar 19 cherry DNA DETECTE DETECTE informa informa informa 2016 D tion in tion in tion in 5:46 PM [Presen source source source ce] in data data data Unspeci fied specime n by Probe & target amplifi cation method Bordete NOT NOT No No No Mar 19 lla DETECTE DETECTE informa informa informa 2017 pertuss D tion in tion in tion in 5:46 PM is DNA source source source [Presen data data data ce] in Unspeci fied specime n by Probe & target amplifi cation method Chlamyd NOT NOT No No No Mar 19 ophila DETECTE DETECTE informa informa informa 2017 pneumon D tion in tion in tion in 5:46 PM iae DNA source source source data data data [Presen ce] in Unspeci fied specime n by Probe & target amplifi cation method SARS NOT NOT No No No Mar 19 coronav DETECTE DETECTE informa informa informa 2016 irus D tion in tion in tion in 5:46 PM RNA source source source [Presen data data data ce] in Unspeci fied specime n by Probe & target amplifi cation method Human NOT NOT No No No Mar 19 coronav DETECTE DETECTE informa informa informa 2016 irus D tion in tion in tion in 5:46 PM HKU1 source source source RNA data data data detecti on by SARS NOT NOT No No No Mar 19 coronav DETECTE DETECTE informa informa informa 2016 irus D tion in tion in tion in 5:46 PM RNA source source source [Presen data data data ce] in Unspeci fied specime n by Probe & target amplifi cation method SARS NOT NOT No No No Mar 19 coronav DETECTE DETECTE informa informa informa 2016 irus D tion in tion in tion in 5:46 PM RNA source source source [Presen data data data ce] in Unspeci fied specime n by Probe & target amplifi cation method Influen NOT NOT No No No Mar 19 za DETECTE DETECTE informa informa informa 2017 virus A D tion in tion in tion in 5:46 PM H3 RNA source source source data data data [Presen ce] in Unspeci fied specime n by Probe & target amplifi cation method Influen NOT NOT No No No Mar 19 za DETECTE DETECTE informa informa informa 2017 virus A D tion in tion in tion in 5:46 PM H1 RNA source source source data data data [Presen ce] in Isolate by Probe & target amplifi cation method Influen NOT NOT No No No Mar 19 za DETECTE DETECTE informa informa informa 2017 virus A D tion in tion in tion in 5:46 PM H1 RNA source source source data data data [Presen ce] in Unspeci fied specime n by Probe & target amplifi cation method Influen NOT NOT No No No Mar 19 za DETECTE DETECTE informa informa informa 2016 virus B D tion in tion in tion in 5:46 PM RNA source source source [Presen data data data ce] in Unspeci fied specime n by Probe & target amplifi cation method Influen NOT NOT No No No Mar 19 za DETECTE DETECTE informa informa informa 2017 virus A D tion in tion in tion in 5:46 PM RNA source source source [Presen data data data ce] in Unspeci fied specime n by Probe & target amplifi cation method Human NOT NOT No No No Mar 19 metapne DETECTE DETECTE informa informa informa 2016 umoviru D tion in tion in tion in 5:46 PM s Ag source source source [Presen data data data ce] in Unspeci fied specime n Mycopla NOT NOT No No No Mar 19 sma DETECTE DETECTE informa informa informa 2016 pneumon D tion in tion in tion in 5:46 PM iae DNA source source source data data data [Presen ce] in Unspeci fied specime n by Probe & target amplifi cation method Parainf NOT NOT No No No Mar 19 luenza DETECTE DETECTE informa informa informa 2016 virus 1 D tion in tion in tion in 5:46 PM RNA source source source [Presen data data data ce] in Unspeci fied specime n by Probe & target amplifi cation method Parainf NOT NOT No No No Mar 19 luenza DETECTE DETECTE informa informa informa 2017 virus 2 D tion in tion in tion in 5:46 PM RNA source source source [Presen data data data ce] in Unspeci fied specime n by Probe & target amplifi cation method Parainf NOT NOT No No No Mar 19 luenza DETECTE DETECTE informa informa informa 2017 virus 3 D tion in tion in tion in 5:46 PM RNA source source source [Presen data data data ce] in Unspeci fied specime n by Probe & target amplifi cation method Parainf NOT NOT No No No Mar 19 luenza DETECTE DETECTE informa informa informa 2017 virus 4 D tion in tion in tion in 5:46 PM RNA source source source [Presen data data data ce] in Isolate by Probe & target amplifi cation method Rhinovi NOT NOT No No No Mar 19 cherry+Ent DETECTE DETECTE informa informa informa 2017 eroviru D tion in tion in tion in 5:46 PM s RNA source source source [Presen data data data ce] in Unspeci fied specime n by Probe & target amplifi cation method Respira NOT NOT No No No Mar 19 tory DETECTE DETECTE informa informa informa 2017 syncyti D tion in tion in tion in 5:46 PM al source source source virus data data data RNA [Presen ce] in Unspeci fied specime n by Probe & target amplifi cation method Lactate [Moles/volume] in Serum or Plasma Observa Value Referen Units Interpr Notes Date tion ce etation Range Lactate 0.4 - 2.0 MMOL/L Normal No Mar 19 [Moles/vo informati 2016 4:35 lume] in on in AM Serum or source Plasma data Lipid 1996 panel in Serum or Plasma Observa Value Referen Units Interpr Notes Date tion ce etation Range COMMENTS TO OIL TREATER: NON-STEMI Cholester < 200 mg/dL No No Mar 19 ol informati informati 2016 4:35 [Moles/vo on in on in AM lume] in source source Unspecifi data data ed specimen Cholester 40 - 60 MG/DL Normal No Mar 19 ol in HDL informati 2016 4:35 on in AM [Mass/vol source ume] in data Serum or Plasma Cholester 0 - 130 mg/dL Normal No Mar 19 ol in LDL informati 2016 4:35 on in AM [Mass/vol source ume] in data Serum or Plasma by calculati on Triglycer 30 - 200 mg/dL Normal No Mar 19 hieu informati 2016 4:35 [Moles/vo on in AM lume] in source Serum or data Plasma Cholester 0 - 40 No Normal No Mar 19 ol in informati informati 2017 4:35 VLDL on in on in AM [Mass/vol source source ume] in data data Serum or Plasma Urinalysis dipstick W Reflex Microscopic panel in Urine Observa Value Referen Units Interpr Notes Date tion ce etation Range Appeara CLEAR CLEAR No No No Mar 19 nce of informa informa informa 2017 Urine tion in tion in tion in 12:24 source source source AM data data data Amorpho TRACE NONE No No No Mar 19 us informa informa informa 2017 sedimen tion in tion in tion in 12:24 t source source source AM [Presen data data data ce] in Urine sedimen t by Light microsc opy Bilirub NEGATIV NEG No No BILIRUB Mar 19 in E informa informa IN 2016 [Presen tion in tion in CONFIRM 12:24 ce] in source source ED WITH AM Urine data data by Test ICTOTES strip T Erythro 1+ NEG No Abnorma No Mar 19 cytes informa l informa 2016 [Presen tion in tion in 12:24 ce] in source source AM Urine data data Coarse 3-5 NONE #/hpf No No Mar 19 Granula informa informa 2017 r Casts tion in tion in 12:24 source source AM [Presen data data ce] in Urine sedimen t by Light microsc opy Color TROY YELLOW No No No Mar 19 of informa informa informa 2017 Urine tion in tion in tion in 12:24 source source source AM data data data Glucose NEG No No No Mar 19 [Mass/vol informati informati informati 2017 ume] in on in on in on in 12:24 AM Urine by source source source Test data data data strip Hyaline 3-5 NONE #/lpf No No Mar 19 casts informa informa 2016 [Presen tion in tion in 12:24 ce] in source source AM Urine data data sedimen t by Light microsc opy Ketones NEGATIV NEG mg/dL No No Mar 19 E informa informa 2017 [Presen tion in tion in 12:24 ce] in source source AM Urine data data by Automat ed test strip Mucus NEGATIV NEG No No No Mar 19 [Presen E informa informa informa 2017 ce] in tion in tion in tion in 12:24 Urine source source source AM sedimen data data data t by Light microsc opy Mucus 2+ NONE No No No Mar 19 [Presen informa informa informa 2016 ce] in tion in tion in tion in 12:24 Urine source source source AM sedimen data data data t by Light microsc opy Nitrite NEGATIV NEG No No No Mar 19 E informa informa informa 2016 [Presen tion in tion in tion in 12:24 ce] in source source source AM Urine data data data by Test strip pH of 5.0 - 8.5 No Normal No Mar 19 Urine informati informati 2017 on in on in 12:24 AM source source data data Protein NEG mg/dL High No Mar 19 [Mass/vol informati 2016 ume] in on in 12:24 AM Urine by source Automated data test strip Erythro 5-10 0 rbc/hpf No No Mar 19 cytes informa informa 2016 [Presen tion in tion in 12:24 ce] in source source AM Urine data data sedimen t by Light microsc opy Specific 1.005 - No Normal No Mar 19 gravity 1.030 informati informati 2016 of Urine on in on in 12:24 AM source source data data Urobili 1.0 NEG E.U./dL No No Mar 19 nogen informa informa 2016 [Presen tion in tion in 12:24 ce] in source source AM Urine data data by Test strip Leukocy [10 O wbc/hpf No No Mar 19 sophia wbc/hpf informa informa 2016 [#/volu ; 20 tion in tion in 12:24 me] in wbc/hpf source source AM Urine ] data data Urinalysis dipstick W Reflex Microscopic panel in Urine Observa Value Referen Units Interpr Notes Date tion ce etation Range Appeara CLEAR CLEAR No No No Mar 19 nce of informa informa informa 2016 Urine tion in tion in tion in 12:24 source source source AM data data data Bilirub NEGATIV NEG No No BILIRUB Mar 19 in E informa informa IN 2017 [Presen tion in tion in CONFIRM 12:24 ce] in source source ED WITH AM Urine data data by Test ICTOTES strip T Erythro 1+ NEG No Abnorma No Mar 19 cytes informa l informa 2016 [Presen tion in tion in 12:24 ce] in source source AM Urine data data Color TROY YELLOW No No No Mar 19 of informa informa informa 2017 Urine tion in tion in tion in 12:24 source source source AM data data data Glucose NEG No No No Mar 19 [Mass/vol informati informati informati 2016 ume] in on in on in on in 12:24 AM Urine by source source source Test data data data strip Ketones NEGATIV NEG mg/dL No No Mar 19 E informa informa 2016 [Presen tion in tion in 12:24 ce] in source source AM Urine data data by Automat ed test strip Mucus NEGATIV NEG No No No Mar 19 [Presen E informa informa informa 2016 ce] in tion in tion in tion in 12:24 Urine source source source AM sedimen data data data t by Light microsc opy Nitrite NEGATIV NEG No No No Mar 19 E informa informa informa 2016 [Presen tion in tion in tion in 12:24 ce] in source source source AM Urine data data data by Test strip pH of 5.0 - 8.5 No Normal No Mar 19 Urine informati informati 2016 on in on in 12:24 AM source source data data Protein NEG mg/dL High No Mar 19 [Mass/vol informati 2016 ume] in on in 12:24 AM Urine by source Automated data test strip Specific 1.005 - No Normal No Mar 19 gravity 1.030 informati informati 2016 of Urine on in on in 12:24 AM source source data data Urobili 1.0 NEG E.U./dL No No Mar 19 nogen informa informa 2016 [Presen tion in tion in 12:24 ce] in source source AM Urine data data by Test strip Lactate [Moles/volume] in Blood Observa Value Referen Units Interpr Notes Date tion ce etation Range Lactate 0.4 - 2.0 mmol/L High An Mar 19 [Moles/vo elevated 2017 lume] in Lactic 12:20 AM Blood Acid is suggestiv e of sepsis and shouldbe repeated within 6 hours of initial testing. Amylase [Enzymatic activity/volume] in Serum or Plasma Observa Value Referen Units Interpr Notes Date tion ce etation Range Amylase 25 - 115 U/L Normal No Mar 19 [Enzymati informati 2016 c on in 12:11 AM activity/ source volume] data in Serum or Plasma Cardiac enzymes Observa Value Referen Units Interpr Notes Date ti ce etation Range Creatine 0 - 4.0 U/L Normal No Mar 19 kinase.MB informati 2016 /Creatine on in 12:11 AM source kinase.to data nadia [Ratio] in Serum or Plasma Creatine 0.0 - 3.6 ng/mL High No Mar 19 kinase.MB informati 2017 on in 12:11 AM [Mass/vol source ume] in data Serum or Plasma Creatine 39 - 308 U/L High No Mar 19 kinase informati 2016 [Enzymati on in 12:11 AM c source activity/ data volume] in Serum or Plasma Troponin 0.00 - ng/mL High Mar 19 I.cardiac 0.06 2017 CRITICAL 12:11 AM [Mass/vol RESULTS ume] in Serum or RESU Plasma LTS CALLED TO: Marge ENRIQUEZ RN 03/19/17 0055 Vandana Archer hn> 0.5 IS CONSISTEN T WITH MYOCARDIA L ISCHEMIA OR INFARCTIO N Comprehensive metabolic 2000 panel in Serum or Plasma Observa Value Referen Units Interpr Notes Date ti ce etation Range Albumin/G 1.1 - 1.8 No Low No Mar 19 lobulin informati informati 2016 [Mass on in on in 12:11 AM ratio] in source source Serum or data data Plasma Albumin 3.4 - 5.0 gm/dL Low No Mar 19 [Mass/vol informati 2016 ume] in on in 12:11 AM Serum or source Plasma data Alkaline 46 - 116 U/L Normal No Mar 19 phosphata informati 2016 se on in 12:11 AM [Enzymati source c data activity/ volume] in Serum or Plasma Bilirubin 0.2 - 1.0 mg/dL High No Mar 19 .total informati 2017 [Mass/vol on in 12:11 AM ume] in source Serum or data Plasma Urea 7 - 18 mg/dL High No Mar 19 nitrogen informati 2016 [Mass/vol on in 12:11 AM ume] in source Serum or data Plasma Calcium 8.5 - mg/dL Normal No Mar 19 [Mass/vol 10.1 informati 2016 ume] in on in 12:11 AM Serum or source Plasma data Chloride 98 - 107 mmoL/L Normal No Mar 19 [Moles/vo informati 2016 lume] in on in 12:11 AM Serum or source Plasma data Carbon 21.0 - mmoL/L Normal No Mar 19 dioxide, 32.0 informati 2016 total on in 12:11 AM [Moles/vo source lume] in data Serum or Plasma Creatinin 0.70 - mg/dL High No Mar 19 e 1.30 informati 2017 [Mass/vol on in 12:11 AM ume] in source Serum or data Plasma Creatinin 50 - 200 ML/MIN Normal No Mar 19 e renal informati 2017 clearance on in 12:11 AM source predicted data by Cockcroft -Gault formula Estimated >60 ML/MIN No REFERENCE Mar 19 informati RANGE: 2017 glomerula on in >60 12:11 AM r source ML/MIN/1. filtratio data 73 SQUARE n rate METERSIf (GF this patient is -A merican, then multiply theresult by 1.210. Globulin 1.3 - 3.2 gm/dL High No Mar 19 [Mass/vol informati 2016 ume] in on in 12:11 AM Serum source data Glucose 74 - 106 mg/dL High No Mar 19 [Mass/vol informati 2017 ume] in on in 12:11 AM Serum or source Plasma data Potassium 3.5 - 5.1 mmoL/L Normal No Mar 19 inform2016 [Moles/vo on in 12:11 AM lume] in source Serum or data Plasma Sodium 136 - 145 mmoL/L Low No Mar 19 [Moles/vo informati 2016 lume] in on in 12:11 AM Serum or source Plasma data Aspartate 15 - 37 U/L Normal No Mar 19 informati 2016 aminotran on in 12:11 AM sferase source [Enzymati data c activity/ volume] in Serum or Plasma Alanine 12 - 78 U/L Normal No Mar 19 aminotran informati 2016 sferase on in 12:11 AM [Enzymati source c data activity/ volume] in Serum or Plasma Protein 6.4 - 8.2 gm/dL Normal No Mar 19 [Mass/vol informati 2017 ume] in on in 12:11 AM Serum or source Plasma data Lipase [Enzymatic activity/volume] in Serum or Plasma Observa Value Referen Units Interpr Notes Date tion ce etation Range Lipase 73 - 393 U/L Normal No Mar 19 [Enzymati inform2016 c on in 12:11 AM activity/ source volume] data in Serum or Plasma CBC W Auto Differential panel in Blood Observa Value Referen Units Interpr Notes Date ti ce etation Range Basophils 0 - 0.2 K/MM3 Normal No Mar 19 inform2016 [#/volume on in 12:11 AM ] in source Blood by data Automated count Basophils 0.1 - 2.0 % Normal No Mar 19 /100 inform2016 leukocyte on in 12:11 AM s in source Blood by data Automated count Eosinophi 0.0 - 0.4 K/mm3 Normal No Mar 19 ls inform2016 [#/volume on in 12:11 AM ] in source Blood by data Automated count Eosinophi 0.1 - % Normal No Mar 19 ls/100 12.0 inform2016 leukocyte on in 12:11 AM s in source Blood by data Automated count Granulocy 1.3 - 8.0 K/mm3 High No Mar 19 sophia 2016 [#/volume on in 12:11 AM ] in source Blood by data Automated count Granulocy 37.0 - % High No Mar 19 sophia/100 80.0 2016 leukocyte on in 12:11 AM s in source Blood by data Automated count Hematocri 42.0 - % Normal No Mar 19 t [Volume 52.0 2016 on in 12:11 AM Fraction] source of Blood data Hemoglobi 14.1 - g/dL Normal No Mar 19 n 18.0 inform2016 [Mass/vol on in 12:11 AM ume] in source Blood data Lymphocyt 0.7 - 4.5 K/mm3 Normal No Mar 19 es inform2016 [#/volume on in 12:11 AM ] in source Unspecifi data ed specimen by Automated count Lymphocyt 10 - 50 % Low No Mar 19 es 2016 [#/volume on in 12:11 AM ] in source Unspecifi data ed specimen by Automated count Erythrocy 27 - 31.2 pg Normal No Mar 19 te mean inform2016 corpuscul on in 12:11 AM ar source hemoglobi data n [Entitic mass] Erythrocy 31.8 - g/dl Normal No Mar 19 te mean 35.4 2016 corpuscul on in 12:11 AM ar source hemoglobi data n concentra tion [Mass/vol ume] by Automated count Erythrocy 82.2 - fl Normal No Mar 19 te mean 97.8 2016 corpuscul on in 12:11 AM ar volume source [Entitic data volume] by Automated count Monocytes 0.1 - 1.0 K/mm3 High No Mar 19 inform2016 [#/volume on in 12:11 AM ] in source Blood by data Automated count Monocytes 1.7 - 9.3 % Normal No Mar 19 inform2016 leukocyte on in 12:11 AM s in source Blood by data Automated count Platelet 7.4 - fl Normal No Mar 19 mean 10.4 inform2016 volume on in 12:11 AM [Entitic source volume] data in Blood by Automated count Platelets 142 - 424 K/mm3 Normal No Mar 19 informati 2016 [#/volume on in 12:11 AM ] in source Blood data Erythrocy 4.6 - 6.2 M/mm3 Normal No Mar 19 sophia informati 2016 [#/volume on in 12:11 AM ] in source Amniotic data fluid Erythrocy 11.5 - % Normal No Mar 19 te 17.5 inform2016 distribut on in 12:11 AM ion width source [Entitic data volume] by Automated count Leukocyte 4.8 - K/MM3 High No Mar 19 s 10.8 alert informati 2016 [#/volume on in 12:11 AM ] in source Blood data Differential panel, method unspecified - Observa Value Referen Units Interpr Notes Date tion ce etation Range Neutrophi 0 - 8 % High No Mar 19 ls.band informati 2017 form/100 on in 12:11 AM leukocyte source s in data Blood by Automated count LYMPH 7 10 - 50 % Low No Mar 19 informa 2016 tion in 12:11 source AM data Monocytes 2 - 9 % Normal No Mar 19 informati 2016 leukocyte on in 12:11 AM s in source Blood by data Automated count Platele NORMAL No No No No Mar 19 ts informa informa informa informa 2016 [Presen tion in tion in tion in tion in 12:11 ce] in source source source source AM Blood data data data data by Light microsc opy Neutrophi 42 - 76 % Normal No Mar 19 ls informati 2016 [#/volume on in 12:11 AM ] in source Blood by data Automated count Erythro NORMAL No No No No Mar 19 cyte informa informa informa informa 2017 morphol tion in tion in tion in tion in 12:11 ogy source source source source AM finding data data data data [Identi fier] in Blood Ana Maria SL. No No No No Mar 19 x informa informa informa informa 2016 [Presen tion in tion in tion in tion in 12:11 ce] in source source source source AM Blood data data data data by Light microsc opy Cells No #CELLS No No Mar 19 Counted informati informati informati 2017 Total [#] on in on in on in 12:11 AM in Blood source source source data data data Amylase [Enzymatic activity/volume] in Serum or Plasma Observa Value Referen Units Interpr Notes Date tion ce etation Range Amylase 25 - 115 U/L Normal No Mar 15 [Enzymati informati 2017 8:30 c on in PM activity/ source volume] data in Serum or Plasma Comprehensive metabolic 2000 panel in Serum or Plasma Observa Value Referen Units Interpr Notes Date tion ce etation Range Albumin/G 1.1 - 1.8 No Low No Mar 15 lobulin informati informati 2017 8:30 [Mass on in on in PM ratio] in source source Serum or data data Plasma Albumin 3.4 - 5.0 gm/dL Normal No Mar 15 [Mass/vol informati 2017 8:30 ume] in on in PM Serum or source Plasma data Alkaline 46 - 116 U/L High No Mar 15 phosphata informati 2017 8:30 se on in PM [Enzymati source c data activity/ volume] in Serum or Plasma Bilirubin 0.2 - 1.0 mg/dL High No Mar 15 .total informati 2017 8:30 [Mass/vol on in PM ume] in source Serum or data Plasma Urea 7 - 18 mg/dL Normal No Mar 15 nitrogen informati 2017 8:30 [Mass/vol on in PM ume] in source Serum or data Plasma Calcium 8.5 - mg/dL Normal No Mar 15 [Mass/vol 10.1 informati 2017 8:30 ume] in on in PM Serum or source Plasma data Chloride 98 - 107 mmoL/L Normal No Mar 15 [Moles/vo informati 2017 8:30 lume] in on in PM Serum or source Plasma data Carbon 21.0 - mmoL/L Normal No Mar 15 dioxide, 32.0 informati 2016 8:30 total on in PM [Moles/vo source lume] in data Serum or Plasma Creatinin 0.70 - mg/dL High No Mar 15 e 1.30 informati 2016 8:30 [Mass/vol on in PM ume] in source Serum or data Plasma Creatinin 50 - 200 ML/MIN Normal No Mar 15 e renal informati 2016 8:30 clearance on in PM source predicted data by Cockcroft -Gault formula Estimated >60 ML/MIN No REFERENCE Mar 15 informati RANGE: 2017 8:30 glomerula on in >60 PM r source ML/MIN/1. filtratio data 73 SQUARE n rate METERSIf (GF this patient is -A merican, then multiply theresult by 1.210. Globulin 1.3 - 3.2 gm/dL High No Mar 15 [Mass/vol informati 2016 8:30 ume] in on in PM Serum source data Glucose 74 - 106 mg/dL High No Mar 15 [Mass/vol informati 2016 8:30 ume] in on in PM Serum or source Plasma data Potassium 3.5 - 5.1 mmoL/L Normal No Mar 15 informati 2016 8:30 [Moles/vo on in PM lume] in source Serum or data Plasma Sodium 136 - 145 mmoL/L Normal No Mar 15 [Moles/vo informati 2016 8:30 lume] in on in PM Serum or source Plasma data Aspartate 15 - 37 U/L Normal No Mar 15 informati 2016 8:30 aminotran on in PM sferase source [Enzymati data c activity/ volume] in Serum or Plasma Alanine 12 - 78 U/L Normal No Mar 15 aminotran informati 2016 8:30 sferase on in PM [Enzymati source c data activity/ volume] in Serum or Plasma Protein 6.4 - 8.2 gm/dL High No Mar 15 [Mass/vol informati 2016 8:30 ume] in on in PM Serum or source Plasma data Lipase [Enzymatic activity/volume] in Serum or Plasma Observa Value Referen Units Interpr Notes Date tion ce etation Range Lipase 73 - 393 U/L High No Mar 15 [Enzymati informati 2017 8:30 c on in PM activity/ source volume] data in Serum or Plasma CBC W Auto Differential panel in Blood Observa Value Referen Units Interpr Notes Date tion ce etation Range Basophils 0 - 0.2 K/MM3 Normal No Mar 15 informati 2016 8:30 [#/volume on in PM ] in source Blood by data Automated count Basophils 0.1 - 2.0 % Normal No Mar 15 /100 informati 2017 8:30 leukocyte on in PM s in source Blood by data Automated count Eosinophi 0.0 - 0.4 K/mm3 Normal No Mar 15 ls informati 2016 8:30 [#/volume on in PM ] in source Blood by data Automated count Eosinophi 0.1 - % Normal No Mar 15 ls/100 12.0 informati 2016 8:30 leukocyte on in PM s in source Blood by data Automated count Granulocy 1.3 - 8.0 K/mm3 High No Mar 15 sophia informati 2016 8:30 [#/volume on in PM ] in source Blood by data Automated count Granulocy 37.0 - % Normal No Mar 15 sophia/100 80.0 informati 2016 8:30 leukocyte on in PM s in source Blood by data Automated count Hematocri 42.0 - % Normal No Mar 15 t [Volume 52.0 informati 2017 8:30 on in PM Fraction] source of Blood data Hemoglobi 14.1 - g/dL Normal No Mar 15 n 18.0 informati 2016 8:30 [Mass/vol on in PM ume] in source Blood data Lymphocyt 0.7 - 4.5 K/mm3 Normal No Mar 15 es informati 2016 8:30 [#/volume on in PM ] in source Unspecifi data ed specimen by Automated count Lymphocyt 10 - 50 % Normal No Mar 15 es informati 2016 8:30 [#/volume on in PM ] in source Unspecifi data ed specimen by Automated count Erythrocy 27 - 31.2 pg Normal No Mar 15 te mean informati 2016 8:30 corpuscul on in PM ar source hemoglobi data n [Entitic mass] Erythrocy 31.8 - g/dl Normal No Mar 15 te mean 35.4 informati 2016 8:30 corpuscul on in PM ar source hemoglobi data n concentra tion [Mass/vol ume] by Automated count Erythrocy 82.2 - fl Normal No Mar 15 te mean 97.8 informati 2016 8:30 corpuscul on in PM ar volume source [Entitic data volume] by Automated count Monocytes 0.1 - 1.0 K/mm3 High No Mar 15 informati 2016 8:30 [#/volume on in PM ] in source Blood by data Automated count Monocytes 1.7 - 9.3 % Normal No Mar 15 /100 informati 2016 8:30 leukocyte on in PM s in source Blood by data Automated count Platelet 7.4 - fl Normal Mar 15 mean 10.4 informati 2016 8:30 volume on in PM [Entitic source volume] data in Blood by Automated count Platelets 142 - 424 K/mm3 No No Mar 15 informati informati 2017 8:30 [#/volume on in on in PM ] in source source Blood data data Erythrocy 4.6 - 6.2 M/mm3 Normal No Mar 15 sophia informati 2016 8:30 [#/volume on in PM ] in source Amniotic data fluid Erythrocy 11.5 - % Normal No Mar 15 te 17.5 informati 2016 8:30 distribut on in PM ion width source [Entitic data volume] by Automated count Leukocyte 4.8 - K/MM3 High No Mar 15 s 10.8 informati 2016 8:30 [#/volume on in PM ] in source Blood data Urinalysis dipstick W Reflex Microscopic panel in Urine Observa Value Referen Units Interpr Notes Date tion ce etation Range Appeara CLEAR CLEAR No No No Mar 15 nce of informa informa informa 2016 Urine tion in tion in tion in 8:30 PM source source source data data data Bacteri 1+ O No No No Mar 15 a informa informa informa 2016 [Presen tion in tion in tion in 8:30 PM ce] in source source source Urine data data data sedimen t by Light microsc opy Bilirub 1+ NEG No Abnorma ICTOTES Mar 15 in informa l T = 2016 [Presen tion in NEGATIV 8:30 PM ce] in source E Urine data by Test strip Erythro NEGATIV NEG No No No Mar 15 cytes E informa informa informa 2016 [Presen tion in tion in tion in 8:30 PM ce] in source source source Urine data data data Coarse OCC NONE #/hpf No No Mar 15 Granula informa informa 2017 r Casts tion in tion in 8:30 PM source source [Presen data data ce] in Urine sedimen t by Light microsc opy Color YELLOW YELLOW No No No Mar 15 of informa informa informa 2017 Urine tion in tion in tion in 8:30 PM source source source data data data Glucose NEG No No No Mar 15 [Mass/vol informati informati informati 2017 8:30 ume] in on in on in on in PM Urine by source source source Test data data data strip Ketones NEGATIV NEG mg/dL No No Mar 15 E informa informa 2016 [Presen tion in tion in 8:30 PM ce] in source source Urine data data by Automat ed test strip Mucus TRACE NEG No Abnorma No Mar 15 [Presen informa l informa 2016 ce] in tion in tion in 8:30 PM Urine source source sedimen data data t by Light microsc opy Mucus OCC NONE No No No Mar 15 [Pres informa informa informa 2016 ce] in tion in tion in tion in 8:30 PM Urine source source source sedimen data data data t by Light microsc opy Nitrite NEGATIV NEG No No No Mar 15 E informa informa informa 2016 [Presen tion in tion in tion in 8:30 PM ce] in source source source Urine data data data by Test strip pH of 5.0 - 8.5 No Normal No Mar 15 Urine informati informati 2017 8:30 on in on in PM source source data data Protein NEG mg/dL High No Mar 15 [Mass/vol informati 2017 8:30 ume] in on in PM Urine by source Automated data test strip Erythro NONE 0 rbc/hpf No No Mar 15 cytes informa informa 2016 [Presen tion in tion in 8:30 PM ce] in source source Urine data data sedimen t by Light microsc opy Specific 1.005 - No Normal No Mar 15 gravity 1.030 informati informati 2017 8:30 of Urine on in on in PM source source data data Epithel 10-20 OCC #/hpf No No Mar 15 ial informa informa 2017 cells.s tion in tion in 8:30 PM quamous source source data data [Presen ce] in Urine sedimen t by Microsc opy high power field Urobili 1.0 NEG E.U./dL No No Mar 15 nogen informa informa 2016 [Presen tion in tion in 8:30 PM ce] in source source Urine data data by Test strip Leukocy [5 O wbc/hpf No No Mar 15 sophia wbc/hpf informa informa 2016 [#/volu ; 10 tion in tion in 8:30 PM me] in wbc/hpf source source Urine ] data data Urinalysis dipstick W Reflex Microscopic panel in Urine Observa Value Referen Units Interpr Notes Date tion ce etation Range Appeara CLEAR CLEAR No No No Mar 15 nce of informa informa informa 2017 Urine tion in tion in tion in 8:30 PM source source source data data data Bilirub 1+ NEG No Abnorma ICTOTES Mar 15 in informa l T = 2017 [Presen tion in NEGATIV 8:30 PM ce] in source E Urine data by Test strip Erythro NEGATIV NEG No No No Mar 15 cytes E informa informa informa 2016 [Presen tion in tion in tion in 8:30 PM ce] in source source source Urine data data data Color YELLOW YELLOW No No No Mar 15 of informa informa informa 2017 Urine tion in tion in tion in 8:30 PM source source source data data data Glucose NEG No No No Mar 15 [Mass/vol informati informati informati 2017 8:30 ume] in on in on in on in PM Urine by source source source Test data data data strip Ketones NEGATIV NEG mg/dL No No Mar 15 E informa informa 2016 [Presen tion in tion in 8:30 PM ce] in source source Urine data data by Automat ed test strip Mucus TRACE NEG No Abnorma No Mar 15 [Presen informa l informa 2017 ce] in tion in tion in 8:30 PM Urine source source sedimen data data t by Light microsc opy Nitrite NEGATIV NEG No No No Mar 15 E informa informa informa 2016 [Presen tion in tion in tion in 8:30 PM ce] in source source source Urine data data data by Test strip pH of 5.0 - 8.5 No Normal No Mar 15 Urine informati informati 2017 8:30 on in on in PM source source data data Protein NEG mg/dL High No Mar 15 [Mass/vol informati 2017 8:30 ume] in on in PM Urine by source Automated data test strip Specific 1.005 - No Normal No Mar 15 gravity 1.030 informati informati 2017 8:30 of Urine on in on in PM source source data data Urobili 1.0 NEG E.U./dL No No Mar 15 nogen informa informa 2017 [Presen tion in tion in 8:30 PM ce] in source source Urine data data by Test strip
--- OUTSIDE RECORDS SUMMARY | 2017-03-31 16:01 | External Medical Summary Rpt ---
[...] opy light.P landon aguilar at: - [facility] [address], [place], [place] [id number]Lab Directo r: Mario camacho PhD, Phone: [phone] CRP Observa Value Referen Units Interpr Notes [...] Date tion ce etation Range COMMENTS TO [facility] TECHNICIAN: NON-STEMI Cholester < 200 mg/dL No No [...]
[2017-03-31 16:12] LABS: HEMOGLOBIN 10.3 g/dL (14.1-18.0); LYMPH # 1.5 K/mm3 (0.7-4.5); LYMPH % 12.6 % (10-50)
[2017-03-31 16:35] LABS: URINE BILIRUBIN - DIPSTICK NEGATIVE (NEG); URINE BLOOD 3+ (NEG)
[2017-03-31 17:00] LABS: ALLEN'S TEST Y; ARTERIAL ABE -5.7 MMOL/L (-2.4-+2.3); ARTERIAL PO2 83.1 MMHG (80-100); OXYGEN 2.5
--- NOTE | 2017-03-31 17:49 | RADIOLOGY REPORT PS360 ---
CT ABD PELVIS W/O CONTRAST COMPARISON: CT scan abdomen pelvis without IV or oral contrast 03/15/2017 HISTORY: Recent staph infection, now presenting with suspected acute renal failure TECHNIQUE: Multiple axial scans obtained from hemidiaphragms the pelvic floor were performed without IV or oral contrast. Sagittal coronal reformats were evaluated as well. FINDINGS: Scans through the lower chest show large bilateral pleural effusions larger right side than left. There are scattered patchy ill-defined pneumonic infiltrates in the left lower lobe there is minimal atelectasis in the right lower lobe. There is gross generalized cardiomegaly. There are sternal wire sutures noted. There is prominent coronary artery calcification. There is a [id number] sized hiatal hernia. The liver and spleen are grossly normal. The stomach is normal size, somewhat distended with ingested food particles. The pancreas is normal, the gallbladder somewhat contracted but shows no obvious stones. There is a markedly calcified and somewhat tortuous splenic artery. There is arteriosclerotic calcification of the abdominal aorta but there is no aneurysm. The adrenal glands are normal. The kidneys are normal size and there are no calculi and is no obstructive uropathy of either kidney. Small bowel appears normal. I do not definitely identify the appendix but there are no pericecal inflammatory changes. There is moderate scattered stool in ascending and transverse colon. There is prominent and diffuse diverticulosis of the lower descending and primarily sigmoid colon without definite evidence of diverticulitis however with this prominent and diffuse diverticuli the small focus of diverticulitis could be missed. The urinary bladder is decompressed and a Cruz catheter in place. There is mild diffuse increased attenuation of the 17th tissues of the abdominal wall and upper pelvis suggesting mild generalized anasarca and probably secondary to the patient's suspected acute renal failure. The prostate is normal in size. There are small bilateral inguinal hernias containing fat only. There are prominent diffuse multilevel degenerative changes in lower thoracic and upper lumbar spine. IMPRESSION: 1. Stable generalized cardiomegaly, new finding of bilateral pleural effusions along with diffuse ill-defined pneumonic infiltrates left lower lobe. 2. Mild generalized anasarca of the subcutaneous tissues. 3. Prominent diffuse diverticulosis of the lower descending and sigmoid colon without definite evidence of diverticulitis, see discussion above
[2017-03-31 18:28] VITALS: BP 153/88
--- NOTE | 2017-03-31 20:07 | RADIOLOGY REPORT PS360 ---
CHEST-PORTABLE COMPARISON: Portable upright chest 03/20/2017 HISTORY: Torus of breath TECHNIQUE: Portable upright chest FINDINGS: The lung gutierrez are fairly well-expanded. There is lateral elevation of the right hemidiaphragm suggesting a probable subpulmonic pleural effusion. There is generalized cardio megaly and there has been slight interval increase in overall cardiac size from the previous chest film of 03/20/2017. There also is mild vascular congestion. Sternal wire sutures are again noted. The PICC line seen on the previous chest film has apparently been removed. IMPRESSION: Mild generalized cardio megaly with mild pulmonary congestion and possible right subpulmonic pleural effusion and this was subsequently confirmed on follow-up CT scan of the abdomen and pelvis performed the same day, congestive heart failure versus fluid overload are considerations
== END 2017-03-31 16:50 | disposition short-term general hospital (02) ==
LOC: ER 15:40
PROVIDERS: General Practice
DX: N17.9 Acute kidney failure, unspecified (principal); J90 Pleural effusion, not elsewhere classified; N04.9 Nephrotic syndrome with unspecified morphologic changes; R06.02 Shortness of breath; I10 Essential (primary) hypertension; K21.9 Gastro-esophageal reflux disease without esophagitis; I25.10 Atherosclerotic heart disease of native coronary artery without angina pectoris
CPT/HCPCS: G0103

== ENCOUNTER → 2017-06-25 | Outpatient (CLI) | payer MEDICARE, OTHER ==
--- NOTE | 2017-06-25 21:44 | RADIOLOGY REPORT PS360 ---
PROCEDURE: 2-D M-mode and color Doppler study. INDICATIONS FOR THE TEST: Chest pain COPD Heart Murmur Tobacco Smoking Palpitations Fatigue Syncope Edema Hypertension Diabetes Mellitus Rheumatic Fever SOB+ORTIZ+Obesity Hyperlipidemia+ Family History HD Additional History svt, cabg PATIENT INFORMATION HEIGHT: 70 WEIGHT:188 GENDER: Male B/P: 137/78 2-D/M-MODE INTERPRETATION: 2-D MEASUREMENTS OBSERVED VALUES IN CMS Right Ventricular Dimension (RVDd) 2.8 Interventricular Septum (Thickness)(IVsd) 1.4 Left Ventricular Internal Dimensions(LVIDd) 3.9 Left Ventricular Posterior Wall (Thickness)(LVPWd) 1.3 Aortic Root 4.5 Aortic Cusp Separation 1.5 Left Atrial Dimensions (LAD) 3.8 2D 1. Left atrium is moderately enlarged, left ventricle is mildly dilated, there is mild concentric left ventricular hypertrophy, there is severely reduced left ventricular systolic function, visually estimated ejection fraction approximately 30%, there is marked hypokinesis involving the inferior, mid to distal septum, anteroapical and apical wall. Endocardial surface of poorly visualized. 2. The right atrium and right ventricle are normal size and contractility. 3. The aortic valve is thickened and calcified, leaflet continue to display mobility. 4. The mitral and tricuspid valve leaflets are minimally thickened 5. The pulmonic valve is poorly visualized. 6. No significant pericardial effusion noted. DOPPLER INTERROGATION: Doppler interrogation of the aortic, mitral and tricuspid valvular presence of mild aortic, mild mitral and tricuspid regurgitation, tricuspid and jet velocity insufficient for calculation of the right ventricular systolic pressure, grade 1 diastolic dysfunction seen with tissue Doppler evidence of raised left atrial pressure. CONCLUSION: 1. Technically difficult study because of the patient's factor and poor acoustic windows. 2. Moderately enlarged left atrium, mildly dilated left ventricle, mild concentric left ventricular hypertrophy present, severely reduced left ventricular systolic function, visually estimated ejection fraction 30% with multiple segmental wall motion abnormality as described above, grade 1 diastolic dysfunction seen with tissue Doppler evidence of raised left atrial pressure. 3. Mild aortic, mild mitral and tricuspid regurgitation. 4. No significant pericardial effusion noted.
== END ==
LOC: RT 13:07
DX: R00.0 Tachycardia, unspecified (principal); I25.10 Atherosclerotic heart disease of native coronary artery without angina pectoris; I10 Essential (primary) hypertension; E78.5 Hyperlipidemia, unspecified; Z95.1 Presence of aortocoronary bypass graft

== ENCOUNTER → 2017-07-09 | Outpatient (CLI) | payer MEDICARE, OTHER ==
--- NOTE | 2017-07-10 15:14 | RADIOLOGY REPORT PS360 ---
CARDIOLITE SPECT MYOCARDIAL PERFUSION SCAN, REST AND STRESS: EXERCISE STRESS [facility] [place] REVIEW QGS EF AND WALL MOTION EVALUATION: QPS - PERFUSION EVALUATION HISTORY: CAD, ANEMIA DOSE: 10.80 mCi technetium 99m mibi intravenously at rest followed by 31.8 mCi technetium 99m mibi following the intravenous ministration of 0.4 mg of Lexiscan. Resting blood pressure is 125/68. Stress blood pressure 114/65. FINDINGS: Ejection fraction is calculated to be 41. Stress images reveal decreased activity in the septum inferior wall and apex. Rest images reveal worsening activity in the inferior wall with improvement in the septum and apex. IMPRESSION: Reversible ischemia in the septum and apex with reverse redistribution in the inferior wall. Ejection fraction of 41% with apical hypokinesis inferior hypokinesis. This is an abnormal high risk stress test
--- NOTE | 2017-07-10 15:14 | RADIOLOGY REPORT PS360 ---
CARDIOLITE SPECT MYOCARDIAL PERFUSION SCAN, REST AND STRESS: EXERCISE STRESS [facility] REVIEW QGS EF AND WALL MOTION EVALUATION: QPS - PERFUSION EVALUATION HISTORY: CAD, ANEMIA DOSE: 10.80 mCi technetium 99m mibi intravenously at rest followed by 31.8 mCi technetium 99m mibi following the intravenous ministration of 0.4 mg of Lexiscan. Resting blood pressure is 125/68. Stress blood pressure 114/65. FINDINGS: Ejection fraction is calculated to be 41. Stress images reveal decreased activity in the septum inferior wall and apex. Rest images reveal worsening activity in the inferior wall with improvement in the septum and apex. IMPRESSION: Reversible ischemia in the septum and apex with reverse redistribution in the inferior wall. Ejection fraction of 41% with apical hypokinesis inferior hypokinesis. This is an abnormal high risk stress test
== END ==
LOC: RAD 11:07
DX: I42.8 Other cardiomyopathies (principal); I25.10 Atherosclerotic heart disease of native coronary artery without angina pectoris; D64.9 Anemia, unspecified
CPT/HCPCS: A9502; J2785

== ENCOUNTER → 2017-07-16 | Day surgery (SDC) | payer MEDICARE, OTHER ==
[~2017-07-16] VITALS: Ht 177.8 cm; Wt 81.4 kg
[2017-07-16 08:05] LABS: HEMOGLOBIN 9.1 g/dL (14.1-18.0); LYMPH # 2.3 K/mm3 (0.7-4.5)
[2017-07-16 08:06] LABS: BUN 18 mg/dL (7-18)
[2017-07-16 08:09] LABS: GFR (ESTIMATED) 66 ML/MIN (>60)
--- NOTE | 2017-07-16 10:48 | RADIOLOGY REPORT PS360 ---
CARDIAC CATHETERIZATION DATE OF CATHETERIZATION:07/16/2017 8:21 AM PROCEDURES: 1. Selective coronary angiogram 2. Selective engagement of the saphenous vein graft to the right coronary artery 3. Selective engagement of the saphenous vein graft to the circumflex artery 4. Left internal mammary angiography INDICATION FOR TEST: 1. History of coronary artery bypass surgery 2. Abnormal Myoview 3. Angina pectoris Informed consent was obtained prior to the procedure. COMPLICATIONS: None ESTIMATED BLOOD LOSS: Less than 10 ml. TECHNIQUE: One percent lidocaine was used to anesthetize the right groin. The right femoral artery was accessed via the Seldinger technique. A 4-[place] sheath was placed in the right femoral artery. During the cardiac catheterization patient became extremely restless and had a paradoxical hyperactive restless reaction to Versed. Anesthesia was asked for assistance and 200 mg of propofol was administered under anesthesia guidance and supervision. The 4 [place] sheath was upsized to a 45 cm 6 [place] sheath. A 6 [place] JL 6 guide catheter was used intubate the left main artery while the JR4 was used intubate the saphenous to the right coronary artery and an LCB guide catheter used intubate the saphenous to the circumflex artery. Indirect NATALI angiography was performed with the JR4 catheter. Left heart catheterization and left ventriculogram was not performed. At the end of the procedure the apparatus was removed the groin is reprepped closure changed sheath was removed good hemostasis was achieved using Perclose device patient transferred to the postop holding area in stable condition ANGIOGRAPHIC RESULTS: 1. The left main artery has an ostial 30% stenosis and otherwise normal 2. The left anterior descending artery proximally has 20-30% stenoses within mid vessel long 90% stenosis. There is competitive flow distally from the left internal mammary artery 3. The circumflex artery is nondominant and has proximal 50% stenosis. The first obtuse marginal artery is ostially occluded. A second obtuse marginal artery has 40% mid vessel stenoses 4. The right coronary artery is known to be ostially occluded from last heart catheter and was not injected on this angiogram 5. The HENLEY ventriculogram reveals not performed 6. The left ventricular end-diastolic pressure not obtained 7. The left internal mammary artery was indirectly visualized and was patent to the mid LAD 8. The saphenous vein graft to the right coronary artery is patent to the posterior descending artery and fills antegrade with no retrograde filling of the right coronary artery 9. The saphenous vein graft to the first obtuse marginal artery is a large widely patent vein graft IMPRESSION: 1. Adequate revascularization as described above 2. Patent MCARTHUR to LAD 3. Patent saphenous vein graft to first obtuse marginal artery 4. Patent saphenous vein graft to small to medium sized posterior descending artery with no retrograde filling of the kashia right coronary artery 5. Extremely tortuous noncompliant iliofemoral system with dilated aorta PLAN: 1. Medical management 2. Risk factor modification
--- NOTE | 2017-07-16 10:48 | RADIOLOGY REPORT PS360 ---
CARDIAC CATHETERIZATION DATE OF CATHETERIZATION:07/16/2017 8:21 AM PROCEDURES: 1. Selective coronary angiogram 2. Selective engagement of the saphenous vein graft to the right coronary artery 3. Selective engagement of the saphenous vein graft to the circumflex artery 4. Left internal mammary angiography INDICATION FOR TEST: 1. History of coronary artery bypass surgery 2. Abnormal Myoview 3. Angina pectoris Informed consent was obtained prior to the procedure. COMPLICATIONS: None ESTIMATED BLOOD LOSS: Less than 10 ml. TECHNIQUE: One percent lidocaine was used to anesthetize the right groin. The right femoral artery was accessed via the Seldinger technique. A 4-Burmese sheath was placed in the right femoral artery. During the cardiac catheterization patient became extremely restless and had a paradoxical hyperactive restless reaction to Versed. Anesthesia was asked for assistance and 200 mg of propofol was administered under anesthesia guidance and supervision. The 4 Burmese sheath was upsized to a 45 cm 6 Burmese sheath. A 6 Burmese JL 6 guide catheter was used intubate the left main artery while the JR4 was used intubate the saphenous to the right coronary artery and an LCB guide catheter used intubate the saphenous to the circumflex artery. Indirect NATALI angiography was performed with the JR4 catheter. Left heart catheterization and left ventriculogram was not performed. At the end of the procedure the apparatus was removed the groin is reprepped closure changed sheath was removed good hemostasis was achieved using Perclose device patient transferred to the postop holding area in stable condition ANGIOGRAPHIC RESULTS: 1. The left main artery has an ostial 30% stenosis and otherwise normal 2. The left anterior descending artery proximally has 20-30% stenoses within mid vessel long 90% stenosis. There is competitive flow distally from the left internal mammary artery 3. The circumflex artery is nondominant and has proximal 50% stenosis. The first obtuse marginal artery is ostially occluded. A second obtuse marginal artery has 40% mid vessel stenoses 4. The right coronary artery is known to be ostially occluded from last heart catheter and was not injected on this angiogram 5. The HENLEY ventriculogram reveals not performed 6. The left ventricular end-diastolic pressure not obtained 7. The left internal mammary artery was indirectly visualized and was patent to the mid LAD 8. The saphenous vein graft to the right coronary artery is patent to the posterior descending artery and fills antegrade with no retrograde filling of the right coronary artery 9. The saphenous vein graft to the first obtuse marginal artery is a large widely patent vein graft IMPRESSION: 1. Adequate revascularization as described above 2. Patent MCARTHUR to LAD 3. Patent saphenous vein graft to first obtuse marginal artery 4. Patent saphenous vein graft to small to medium sized posterior descending artery with no retrograde filling of the council right coronary artery 5. Extremely tortuous noncompliant iliofemoral system with dilated aorta PLAN: 1. Medical management 2. Risk factor modification
[2017-07-16 13:40] VITALS: BP 111/64
== END ==
LOC: CATHLAB 07:04
PROVIDERS: Internal Medicine
PROC: B2181ZZ Fluoroscopy of Left Internal Mammary Bypass Graft using Low Osmolar Contrast (ICD-10-PCS; principal; 2017-07-16 09:45)
DX: I25.119 Atherosclerotic heart disease of native coronary artery with unspecified angina pectoris (principal); Z95.1 Presence of aortocoronary bypass graft; R94.39 Abnormal result of other cardiovascular function study; I25.5 Ischemic cardiomyopathy; I10 Essential (primary) hypertension
CPT/HCPCS: C1725; C1760; C1769; J1644; Q9967